=== PATIENT | male | born 1955 | race Caucasian/White ===

== ENCOUNTER 2018-05-01 21:17 | Emergency (ER) | payer BC ==
[~2018-05-01] VITALS: Ht 182.9 cm; Wt 77.1 kg
[2018-05-01] MEDS ORDERED: fentaNYL PF VIAL 100 MCG/2 ML VIAL IV ONE (22:00)
--- NOTE | 2018-05-01 22:23 | PHYS DOC ---
Adult General Chief Complaint Chief Complaint: MECHANICAL FALL HPI HPI Patient is a 62 year old male was presenting to the emergency room brought in by ambulance after a fall. He was DRINKING alcohol today he said at least 5 drinks which she normally does on Thursday because he has a stressful job he does not room or how he fell he just ended up on the ground in front of his house he complains of left shoulder pain. He says that he has an old rib injury from the war when he was in the but he does not have any pain on his ribs at this time he did not hit his had no neck pain no loss of consciousness no abdominal pain no other symptoms just the moderate to severe nonradiating sharp shoulder pain worse with positioning He also notes leg swelling and an ongoing basis in the left side he said he has never been checked for a blood clot Review of Systems Review of Systems Constitutional: Denies fever or chills [] Eyes: Denies change in visual acuity, redness, or eye pain [] HENT: Denies nasal congestion or sore throat [] Musculoskeletal:] Integument: Denies rash or skin lesions [] Neurologic: Denies headache, focal weakness or sensory changes [] Endocrine: Denies polyuria or polydipsia [] All other systems were reviewed and found to be within normal limits, except as documented in this note. Current Medications Current Medications Current Medications Medications (Trade) Dose Ordered Sig/Susan Start Time Stop Time Status Last Admin Dose Admin Fentanyl Citrate (Fentanyl 2ml Vial) 50 mcg 1X ONCE 05/01/18 22:00 05/01/18 22:01 DC 05/01/18 22:35 50 MCG Morphine Sulfate (Morphine Sulfate) 4 mg 1X ONCE 05/01/18 23:45 05/02/18 00:13 DC 05/02/18 00:08 4 MG Ondansetron HCl (Zofran) 4 mg 1X ONCE 05/01/18 22:45 05/01/18 22:46 DC 05/01/18 22:37 4 MG Allergies Allergies Allergies Coded Allergies Type Severity Reaction Last Updated Verified No Known Drug Allergies 05/01/18 No Physical Exam Physical Exam Constitutional: Well developed, mild slurred speech consistent with known alcohol intoxication HENT: Normocephalic, atraumatic, bilateral external ears normal, oropharynx moist, no oral exudates, nose normal. [] Eyes: PERRLA, EOMI, conjunctiva normal, no discharge. [] Neck: Normal range of motion, no tenderness, supple, no stridor. [] Cardiovascular:Heart rate regular rhythm, no murmur [] Lungs & Thorax: Bilateral breath sounds clear to auscultation [] Abdomen: Bowel sounds normal, soft, no tenderness, no masses, no pulsatile masses. [] Extremities: There is range of motion of the left shoulder with tenderness to palpation noted. There is swelling noted to the left greater than right lower extremity there is asymmetry noted Neurologic: Alert and oriented X 3, normal motor function, normal sensory function, no focal deficits noted. []Mild slurred speech otherwise intact Psychologic: Affect normal, judgement normal, mood normal. [] Current Patient Data Vital Signs Vital Signs Date Time Temp Pulse Resp B/P (MAP) Pulse Ox O2 Delivery O2 Flow Rate FiO2 05/02/18 00:08 18 96 Room Air 05/01/18 23:24 98.3 146/80 (102) 98.3 05/01/18 22:30 48 Lab Values Laboratory Tests Test 05/01/18 22:24 White Blood Count 8.0 x10^3/uL (4.0-11.0) Red Blood Count 3.84 x10^6/uL (4.30-5.70) L Hemoglobin 13.4 g/dL (13.0-17.5) Hematocrit 38.0 % (39.0-53.0) L Mean Corpuscular Volume 99 fL (79-100) Mean Corpuscular Hemoglobin 35 pg (25-35) Mean Corpuscular Hemoglobin Concent 35 g/dL (31-37) Red Cell Distribution Width 13.6 % (11.5-14.5) Platelet Count 189 x10^3/uL (140-400) Neutrophils (%) (Auto) 82 % (31-73) H Lymphocytes (%) (Auto) 14 % (24-48) L Monocytes (%) (Auto) 3 % (0-9) Eosinophils (%) (Auto) 1 % (0-3) Basophils (%) (Auto) 1 % (0-3) Neutrophils # (Auto) 6.5 x10^3uL (1.8-7.7) Lymphocytes # (Auto) 1.1 x10^3/uL (1.0-4.8) Monocytes # (Auto) 0.2 x10^3/uL (0.0-1.1) Eosinophils # (Auto) 0.0 x10^3/uL (0.0-0.7) Basophils # (Auto) 0.1 x10^3/uL (0.0-0.2) Prothrombin Time 13.7 SEC (11.7-14.0) Prothrombin Time INR 1.1 (0.8-1.1) Sodium Level 144 mmol/L (136-145) Potassium Level 3.7 mmol/L (3.5-5.1) Chloride Level 106 mmol/L (98-107) Carbon Dioxide Level 18 mmol/L (21-32) L Anion Gap 20 (6-14) H Blood Urea Nitrogen 25 mg/dL (8-26) Creatinine 1.6 mg/dL (0.7-1.3) H Estimated GFR (Cockcroft-Gault) 43.9 BUN/Creatinine Ratio 16 (6-20) Glucose Level 113 mg/dL (70-99) H Calcium Level 9.8 mg/dL (8.5-10.1) Total Bilirubin 0.4 mg/dL (0.2-1.0) Aspartate Amino Transferase (AST) 67 U/L (15-37) H Alanine Aminotransferase (ALT) 51 U/L (16-63) Alkaline Phosphatase 82 U/L (46-116) Troponin I Quantitative < 0.017 ng/mL (0.000-0.055) Total Protein 8.0 g/dL (6.4-8.2) Albumin 3.9 g/dL (3.4-5.0) Albumin/Globulin Ratio 1.0 (1.0-1.7) Ethyl Alcohol Level 242 mg/dL (0-10) H Laboratory Tests 05/01/18 22:24 Laboratory Tests 05/01/18 22:24 EKG EKG [] Radiology/Procedures Radiology/Procedures [] Impressions: My interpretation of the shoulder x-ray reveals a mildly displaced surgical neck just below the humeral head fracture no dislocation. There are rib deformities noted but patient has no clinical tenderness there as suspect these are old IMPRESSION: 1. No thrombus identified in deep venous system of the left lower extremity. 2. Edema of soft tissues Electronically signed by: Gildardo Omer MD (05/01/2018 11:36 PM) [id number] Course & Med Decision Making Course & Med Decision Making Pertinent Labs and Imaging studies reviewed. (See chart for details) Alcohol intoxication. Patient is a surgical neck humerus fracture minimally displaced pain control was provided sling was provided orthopedics follow-up was provided patient was instructed on limiting alcohol intake while taking pain control. This appears to be an isolated injury and noted the old rib fractures on the shoulder x-ray but he has not having any pain at all. He does tell me he had an old injury there several years ago[] Dragon Disclaimer Dragon Disclaimer This electronic medical record was generated, in whole or in part, using a voice recognition dictation system. Departure Departure Impression: Primary Impression: Humerus fracture Disposition: HOME, SELF-CARE Condition: STABLE Scripts Oxycodone Hcl (OXYCODONE HCL) 5 Mg Capsule 1 CAP PO TID PRN for PAIN, #20 CAP Prov: LANDEN MISTRY MD 05/01/18 LANDEN MISTRY MD May 01, 2018 22:23
[2018-05-01 22:37] LABS: BASO # 0.1 x10^3/uL (0.0-0.2); BASO % 1 % (0-3); EOS % 1 % (0-3); HEMOGLOBIN 13.4 g/dL (13.0-17.5); LYMPH # 1.1 x10^3/uL (1.0-4.8); LYMPH % 14 % (24-48); MEAN CORPUSCULAR HEMOGLOBIN 35 pg (25-35); MEAN CORPUSCULAR HGB CONC 35 g/dL (31-37); MEAN CORPUSCULAR VOLUME 99 fL (79-100); MONO # 0.2 x10^3/uL (0.0-1.1); MONO % 3 % (0-9); NEUT # 6.5 x10^3uL (1.8-7.7); NEUT % 82 % (31-73); PLATELET COUNT 189 x10^3/uL (140-400); RED BLOOD COUNT 3.84 x10^6/uL (4.30-5.70); RED CELL DISTRIBUTION WIDTH 13.6 % (11.5-14.5)
[2018-05-01 22:43] LABS: CALCIUM 9.8 mg/dL (8.5-10.1); CREATININE 1.6 mg/dL (0.7-1.3); GFR 43.9; POTASSIUM 3.7 mmol/L (3.5-5.1)
[2018-05-01 22:44] LABS: PROTHROMBIN TIME PATIENT 13.7 SEC (11.7-14.0)
[2018-05-01] MEDS ORDERED: ONDANSETRON PF 4 MG/2 ML VIAL. IV ONE (22:45)
[2018-05-01 22:50] LABS: ALBUMIN 3.9 g/dL (3.4-5.0); TOTAL BILIRUBIN 0.4 mg/dL (0.2-1.0)
[2018-05-01 23:24] VITALS: BP 146/80
--- NOTE | 2018-05-01 23:40 | RAD ---
INDICATION: Leg swelling COMPARISON: None. TECHNIQUE: Grayscale, color and doppler ultrasound images were obtained of the left lower extremity venous vasculature. LEFT: No thrombus identified in the common femoral vein, femoral vein, popliteal vein or visualized calf veins. IMPRESSION: 1. No thrombus identified in deep venous system of the left lower extremity. 2. Edema of soft tissues Electronically signed by: Gildardo Omer MD (05/01/2018 11:36 PM) [facility]
[2018-05-01] MEDS ORDERED: OXYC5CAP PO (23:41)
[2018-05-01] MEDS ORDERED: MORPHINE SULFATE 4 MG/ML VIAL. IV ONE (23:45)
--- NOTE | 2018-05-02 08:07 | RAD ---
SHOULDER 2+V LEFT (AP, transscapular Y INDICATION: Trauma, fall COMPARISON: None. FINDINGS: Acute, mildly displaced fracture of the left humeral surgical neck. There is mild medial and anterior displacement of the distal fracture fragment. Multiple rib fractures which appear remote, although the eighth rib fracture does not have a distinct bony callus. Bony mineralization is normal for the patient's age. No significant soft tissue abnormality. No radiopaque foreign body. Right lung opacities may be projectional. IMPRESSION: 1. Acute, mildly displaced fracture of the left humeral surgical neck. 2. Multiple right rib fractures appear remote, although the eighth rib fracture does not have a distinct bony callus. Correlate for point tenderness along the left chest wall. 3. Right lung opacities may be projectional. Correlate for respiratory symptoms. Consider dedicated chest radiographs for further evaluation. Electronically signed by: Servando Barboza MD (05/02/2018 8:03 AM) [facility]
[2018-05-17] MEDS ORDERED: BYSTOLIC10 MG PO (18:38)
[2018-05-17] MEDS ORDERED: OLME1TAB35 PO (18:38)
[2018-05-17] MEDS ORDERED: OXYC-323 PO (18:39)
[2018-05-17] MEDS ORDERED: MULT1TAB52 PO (18:40)
== END 2018-05-02 00:55 | disposition home or self-care (01) ==
LOC: ER 21:17
DX: S42.212A Unspecified displaced fracture of surgical neck of left humerus, initial encounter for closed fracture (principal); M79.89 Other specified soft tissue disorders; R47.81 Slurred speech; F10.129 Alcohol abuse with intoxication, unspecified; Y90.8 Blood alcohol level of 240 mg/100 ml or more; W18.39XA Other fall on same level, initial encounter; Y93.89 Activity, other specified; Y92.008 Other place in unspecified non-institutional (private) residence as the place of occurrence of the external cause; Y99.8 Other external cause status
CPT/HCPCS: 36415; 73030; 80053; 84484; 85025; 85610; 93971; 96374; 96375; 99285; G0480; J2270; J2405; J3010

== ENCOUNTER 2018-05-18 09:17 | Inpatient (IN) | payer BC ==
[~2018-05-18] VITALS: Ht 182.9 cm; Wt 73.5 kg
[~2018-05-18 09:17] MED LIST: BYSTOLIC10 MG PO; HYDROmorphone 2 MG/ML VIAL IV PRN; IV RINGERS,LACTATED 1000ML 1,000 ML IV SCH; LIDOCAINE 1% PF 2 ML VIAL. ID PRN; MORPHINE SULFATE 2 MG/ML VIAL. IV PRN; MULT1TAB52 PO; OLME1TAB35 PO; ONDANSETRON PF 4 MG/2 ML VIAL. IV PRN; OXYC-323 PO; OXYC5CAP PO; PROCHLORPERAZINE 10 MG/2 ML VIAL. IV PRN; fentaNYL PF VIAL 100 MCG/2 ML VIAL IV PRN
[2018-05-18] MEDS ORDERED: ROCURONIUM 50 MG/5 ML VIAL. ONE (11:24)
[2018-05-18] MEDS ORDERED: PROPOFOL 20 ML IV ONE (11:24)
[2018-05-18] MEDS ORDERED: fentaNYL PF VIAL 100 MCG/2 ML VIAL ONE (11:24)
[2018-05-18] MEDS ORDERED: ONDANSETRON PF 4 MG/2 ML VIAL. ONE (11:24)
[2018-05-18] MEDS ORDERED: LIDOCAINE 2% PF Vial for OR 5 ML VIAL. ONE (11:24)
[2018-05-18] MEDS ORDERED: DEXAMETHASONE SOD PHOS 20 MG/5 ML VIAL. ONE (11:24)
[2018-05-18] MEDS ORDERED: FAMOTIDINE 20 MG/2 ML VIAL ONE (11:24)
[2018-05-18] MEDS ORDERED: MIDAZOLAM HCL/PF 2 MG/2 ML VIAL. ONE (11:25)
[2018-05-18] MEDS ORDERED: BUPIVACAINE MPF 0.5% 30 ML VIAL. ONE (12:14)
[2018-05-18] MEDS ORDERED: LIDOCAINE 2% PF 2ML VIAL. ONE (12:14)
[2018-05-18] MEDS ORDERED: BUPIVAC MPF-EPI 0.5%-1:200000 30 ML VIAL. ONE (12:31)
[2018-05-18] MEDS ORDERED: ePHEDrine PF IN SALINE 50 MG/5 ML DISP.SYRIN IV ONE (12:58)
[2018-05-18] MEDS ORDERED: GLYCOPYRROLATE 1 MG/5 ML VIAL. ONE (14:25)
[2018-05-18] MEDS ORDERED: NEOSTIGMINE METHYLSULFATE 5 MG/5 ML SYRINGE. ONE (14:25)
[2018-05-18] MEDS ORDERED: DESFLURANE 61 TO 120 MINUTES IH ONE (14:25)
[2018-05-18] MEDS: IV DEXTROSE 5 %-0.45 % NACL 1,000 ML IV SCH (15:54)
[2018-05-18] MEDS ORDERED: ACETAMINOPHEN 325 MG TABLET. PO PRN (16:00)
[2018-05-18] MEDS ORDERED: HYDROcodone/APAP 10/325 1 TAB TABLET PO PRN (16:00)
[2018-05-18] MEDS ORDERED: MORPHINE SULFATE 2 MG/ML VIAL. IV PRN (16:00)
[2018-05-18] MEDS ORDERED: PROCHLORPERAZINE 5 MG TABLET. PO PRN (16:00)
[2018-05-18] MEDS ORDERED: traMADol 50 MG TABLET PO PRN ×2 (16:00)
[2018-05-18] MEDS ORDERED: oxyCODONE/APAP 5/325 1 TAB TABLET PO PRN (16:00)
[2018-05-18] MEDS ORDERED: DEXTROSE 50% 25 GM / 50ML DISP.SYRIN. IV PRN (16:00)
[2018-05-18] MEDS ORDERED: CALCIUM CARBONATE 500 MG TAB.CHEW PO PRN (16:00)
[2018-05-18] MEDS ORDERED: HYDROcodone/APAP 7.5/325MG 1 TAB TABLET PO PRN (16:00)
[2018-05-18] MEDS ORDERED: ZOLPIDEM 5 MG TABLET. PO PRN (16:00)
[2018-05-18] MEDS ORDERED: 0.9 % SODIUM CHLORIDE 10 ML DISP.SYRIN. IV PRN (16:00)
[2018-05-18] MEDS ORDERED: oxyCODONE/APAP 7.5/325 1 TAB TABLET PO PRN (16:00)
[2018-05-18] MEDS: SENNOSIDES/DOCUSATE 8.6/50MG TABLET. PO SCH (17:10)
[2018-05-18] MEDS: FERROUS SULFATE 325 MG TABLET. PO SCH (17:10)
[2018-05-18] MEDS: MULTIVITAMIN with MINERAL TABLET. PO SCH (17:10)
[2018-05-18 19:30] VITALS: BP 105/66
[2018-05-18 19:45] VITALS: BP 106/64
[2018-05-18 20:15] VITALS: BP 112/64
--- NOTE | 2018-05-18 20:30 | PDOC4 ---
Operative Note Operative Note Date of surgery: 05/18/2018 Preoperative diagnosis: Displaced left humeral neck fracture Postoperative diagnosis: Same Operative procedure: Operative reduction internal fixation left proximal humerus fracture Surgeon: Bernadette Assist: Placido Anesthesia: Gen. Estimated blood loss: 75 mL Complications: None Operative indications: Patient is a 62-year-old male sustaining a proximal humerus fracture nearly 2 weeks prior. He was actually seen in the emergency department told to call for follow-up on Thursday but waited till Thursday to call for follow-up was seen the following week and I emphasized to him the increased displacement and recommended operative fixation due to the displacement angulation and shortening. I reviewed the x-rays with him in the rationale. He was unable to undergo surgery due to a ride and logistics with his roommate until today. I had covered with him today the rationale for surgery the possibility of complications including infection nonhealing nerve or blood vessel damage medical or other anesthetic complications among others and even under the best of circumstances some stiffness in the shoulder where he will not regain full motion due to the injury. All his questions were answered he wishes to proceed with surgical evaluation and treatment. Operative text: Patient was identified procedure verified patient placed in the supine position on the operating table. After adequate amounts of general anesthesia plus a pre-existing scalene block were obtained he was placed in beachchair position and left shoulder was prepped and draped in standard sterile fashion. After timeout was performed patient procedure identified and verified a deltopectoral approach was carried out to the left shoulder no cephalic vein was visualized but the deltoid was mobilized laterally and fracture was reduced under fluoroscopic guidance. The Buddy Alps plate, short version was placed with a guidewire up to the central aspect of the humeral head with reduction under multiple fluoroscopic views. The plate was temporarily secured with a 36 mm screw which was slightly too long after the plate was brought down to the bony surface. The initially superiorly directed screws centrally were placed to ensure adequate central placement and length. The periphery screws then were placed in a counterclockwise manner and each achieved excellent fixation and were checked for positioning and length under fluoroscopic guidance. Excellent reduction of the fracture was noted and screw placement again checked as above. Finally the initial screw in the slotted hole was changed out for a size 30 mm and 2 additional shaft locking screws were placed. Excellent hardware positioning fracture reduction was noted under multiple fluoroscopic views thorough irrigation carried out normal saline solution closure accomplished with buried Vicryl suture subcuticular Monocryl and sterile dressings were applied. Placido mcgrawassistant was present for the procedure assisted in prepping draping retraction and skin closure DAMASO DIAMOND MD May 18, 2018 20:30
[2018-05-18 20:45] VITALS: BP 120/67
[2018-05-18] MEDS: ceFAZolin SODIUM 1 GM in IV DEXTROSE 5% 50 ML IV SCH (21:12)
[2018-05-18] MEDS: CELECOXIB 100 MG CAPSULE. PO SCH (21:12)
[2018-05-18 21:15] VITALS: BP 116/55
[2018-05-18 23:27] VITALS: BP 108/61
[2018-05-19] MEDS: ceFAZolin SODIUM 1 GM in IV DEXTROSE 5% 50 ML IV SCH ×2 (00:48→06:30)
[2018-05-19] MEDS: IV DEXTROSE 5 %-0.45 % NACL 1,000 ML IV SCH (01:54)
[2018-05-19 03:24] VITALS: BP 106/62
[2018-05-19] MEDS ORDERED: MAGNESIUM HYDROXIDE 2,400 MG/30 ML ORAL.SUSP. PO PRN (06:00)
[2018-05-19 07:00] VITALS: BP 118/67
[2018-05-19] MEDS: SENNOSIDES/DOCUSATE 8.6/50MG TABLET. PO SCH (08:19)
[2018-05-19] MEDS: MULTIVITAMIN with MINERAL TABLET. PO SCH (08:19)
[2018-05-19] MEDS: CELECOXIB 100 MG CAPSULE. PO SCH (08:19)
[2018-05-19] MEDS: FERROUS SULFATE 325 MG TABLET. PO SCH (08:19)
[2018-05-19] MEDS ORDERED: OXYC-327 PO (10:24)
[2018-05-19] MEDS ORDERED: BISACODYL 10 MG SUPP.RECT. PR PRN (16:00)
--- NOTE | 2018-05-19 19:37 | DS ---
DATE OF DISCHARGE: 05/19/2018 PRINCIPAL DIAGNOSIS: Left humerus fracture. PROCEDURE: Include operative reduction and internal fixation of left humerus fracture. DISPOSITION: Home with self-care. FOLLOWUP: Dr. Fleming in 1 week. INSTRUCTIONS: Is gentle fine motor use of left arm. No heavy lifting, pushing, pulling. He may do pendulum exercises with his arm at his side and gentle stretching below shoulder level. No physical therapy at present. Keep dressing dry, may shower. Report any redness, drainage, uncontrolled pain or other problems. DISPOSITION MEDICATIONS: Include Percocet 7.5/325 one p.o. q. 4 hours p.r.n. pain, dispense #40, no refills. Resume preoperative medications. BRIEF DESCRIPTION OF HOSPITAL COURSE: The patient underwent uncomplicated fixation of a proximal humerus fracture. Immediately postoperatively, had numbness in the arms due to his interscalene block that resolved by this morning. Distal neurovascular status all intact. His incision is clean, dry and intact. Dressing was changed. Pain was well controlled. He remained otherwise medically stable and was discharged home in stable condition. 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 DAMASO FLEMING MD DR: PAULINA/naomi JOB#: [id number] / [id number]
== END 2018-05-19 11:32 | disposition home or self-care (01) | DRG 494 ==
LOC: SURG 09:17 → 4 NORTH 16:00
PROVIDERS: ADMIT Orthopaedic Surgery; ATTEND Orthopaedic Surgery
PROC: 0PSD04Z Reposition Left Humeral Head with Internal Fixation Device, Open Approach (ICD-10-PCS; principal; 2018-05-18 11:30)
DX: S42.202A Unspecified fracture of upper end of left humerus, initial encounter for closed fracture (principal); W18.30XA Fall on same level, unspecified, initial encounter; Y93.89 Activity, other specified; Y92.89 Other specified places as the place of occurrence of the external cause; Y99.8 Other external cause status
CPT/HCPCS: 76000; A7015; C1713; J0690; J1100; J2001; J2250; J2405; J2704; J2710; J3010; J3490; J7120